=== PATIENT | female | born 1960 | race Two or more races ===

== ENCOUNTER 2021-04-08 12:11 | Emergency (ER) | payer SELFPAY ==
[~2021-04-08] VITALS: Ht 157.5 cm; Wt 56.7 kg
[2021-04-08 13:06] VITALS: BP 148/56
[2021-04-08] MEDS ORDERED: IBUP800T27 PO (13:49)
== END 2021-04-08 14:07 | disposition home or self-care (01) ==
LOC: ER 12:11
DX: S20.211A Contusion of right front wall of thorax, initial encounter (principal); S50.12XA Contusion of left forearm, initial encounter; I10 Essential (primary) hypertension; E78.5 Hyperlipidemia, unspecified; Z88.6 Allergy status to analgesic agent; Z90.89 Acquired absence of other organs; W01.0XXA Fall on same level from slipping, tripping and stumbling without subsequent striking against object, initial encounter; Y93.89 Activity, other specified; Y92.89 Other specified places as the place of occurrence of the external cause; Y99.8 Other external cause status
CPT/HCPCS: 71101

== ENCOUNTER 2024-10-26 06:52 | Day surgery (SDC) | payer MEDICAID, OTHER ==
[~2024-10-26] VITALS: Ht 157.5 cm; Wt 57.6 kg
[2024-10-26] VITALS (8 sets, daily range): BP systolic 128–183; BP diastolic 59–73; PULSE 49–74; RESP 10–15; TEMP 97.8; O2SAT 94–98
[~2024-10-26 06:52] MED LIST: ATOR10TA52 PO; CETI10TA2 PO; LISI20TA56 PO; METF-370 PO
[2024-10-26] MEDS: IODIXANOL 320MG/ML 100ML BTL IV ONE (07:26)
[2024-10-26] MEDS: MIDAZOLAM HCL 2MG/2ML 2ml VIAL (1mg/ml) ONE (07:57)
[2024-10-26] MEDS: ANGIOMAX 250 MG VIAL IV ONE (07:57)
[2024-10-26] MEDS: fentaNYL CITRATE 100 MCG/2 ML VL ONE (07:57)
[2024-10-26] MEDS: SODIUM CHL 0.9% 0 ML ONE (07:57)
[2024-10-26] MEDS: VERAPAMIL 2.5MG/ML INJ 2ML VIAL IV ONE (07:57)
[2024-10-26] MEDS: LIDOCAINE 2%HCL (LOCAL ANESTH.) INJ 20ML MDV ONE (07:57)
[2024-10-26] MEDS: HEPARIN SODIUM (PORCINE) 5000 UNITS/ML 1ML VIAL ONE (09:28)
--- NOTE | 2024-10-26 09:38 | DVHOP2 ---
Operative Report Operative Report CARDIAC SCHEDULING MANAGER PROCEDURE REPORT [place], [place] Date of Service: 10/26/24 Trapeze Performer: Alexey Rudolph MD PROCEDURES PERFORMED: Coronary angiogram, left heart catheterization, conscious sedation administration and supervision, less than 15 minutes; fluoroscopy use and interpretation. PREOPERATIVE DIAGNOSES: Abnormal stress test with CCS class 3 angina, POSTOP DIAGNOSIS: mild cad DESCRIPTION OF PROCEDURE: The patient or appropriate family signed informed consent understanding the risks, benefits and alternatives of the procedure, they wished to proceed. The patient was brought to the cardiac kiln labourer in [place] state. The patient was prepped in a sterile fashion. Sedation was used per cardiac cath protocol. I administered 2 mL of 2% lidocaine to the right wrist. With an antegrade front wall puncture. I cannulated the right radial artery and placed a 6-[place] Glidesheath slender. Next, an intra-arterial spasmolytic was administered. Next, a - 5 [place] Hyder catheter a and were used for coronary angiogram and LVEDP measurement and pressure pullback. At the completion of procedure, all guides and wires were removed, and there were no immediate complications. FINDINGS: RCA: Moderate vessel off the right sinus of Valsalva, there is no severe flow limiting stenosis. LEFT MAIN: Moderate size left main, it bifurcates into LAD and circumflex. no stenosis. CIRCUMFLEX: Moderate caliber vessel coming off the left main with no flow limiting stenosis. LAD: LAD is a moderate caliber vessel coming of the left main. mid LAD has 40% stenosis at diag bifurcation. distal LAD is patent LVEDP of 22 mmhg CONCLUSIONS: 1. mild to moderate non critical CAD PLAN: Aggressive risk factor modification and medical management for the patient. ALEXEY RUDOLPH MD Oct 26, 2024 09:38
== END 2024-10-26 11:50 | disposition home or self-care (01) ==
LOC: CATH 06:52
PROVIDERS: ATTEND Internal Medicine
DX: I25.119 Atherosclerotic heart disease of native coronary artery with unspecified angina pectoris (principal)
CPT/HCPCS: 93458; C1769; C1894; J1644; J2250; J3010; J7030; Q9967; 99152